=== PATIENT | female | born 1970 ===

== ENCOUNTER 2023-03-01 15:30 | Outpatient (RCR) | payer OTHER, SELFPAY ==
[2023-02-04 08:45] VITALS: BP_SYST 110
--- NOTE | 2023-02-04 09:54 | OPREHPOC ---
Outpatient Therapy Plan of Care This is a Multidisciplinary Plan of Care that may contain components documented by all disciplines (PT, OT, and ST.) PT Problem 1 PT Problem #1 Knowledge Deficit PT Goal 1 Goal 1* pt indep with HEP 2* pt demonstrate correct position of R shoulder with exercises and activities PT Problem 2 PT Problem #2 Pain PT Goal 1 Goal 1* pt report pain R shoulder at worst of 5/10 2* no pain with cervical rotation to the L PT Problem 3 PT Problem #3 Impaired Strength PT Goal 1 Goal active strength of R shoulder: in standing 5 reps: 1* flexion to 145' 2* abduction to 125' 3* IR- palm to above waist 4* pt stand with correct R shoulder position/ no forward rotation
--- NOTE | 2023-02-04 09:55 | PTOPEVAL1 ---
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#; Reported Pain Level Pain Score Self Report Additional Pain Score Comments pain range in the past week: 0-9/10; at rest: discomfort in shoulder; pain is less than initially was; over posterior shoulder, under arm pit and med/ anterior humerus; increase pain: lift up or reach out to side, lie on R side decrease pain: rest, ibuprofen, arm held at her side is not using heat or ice--instructed on PRN use with sleeping, generally on R side, sometimes have to roll over during night, but does not really wake her up neck pain and pressure, tightness over neck and shoulder muscles all the time also reports pain over top of R breast; headaches all the time, under alot of stress and tight muscles Assessment PT Clinical Summary Vicenta has the diagnosis of R shoulder pain, onset few months ago, without an injury or trauma to shoulder. She is R handed and works delivering packages. Her history includes neck pain, headaches and low back pain. With the evaluation, she has decreased R shoulder ROM and strength, with abduction and IR the most painful motions; tenderness and spasms over R pec biceps, and R& L cervical and upper traps; poor positioning of neck and shoulder, with rounded position. Skilled PT services are indicated for modalities to decrease pain and spasms over cervical-R shoulder complex, with t
--- NOTE | 2023-02-15 10:09 | PCPTNOTE ---
Pt cancelled this morning due to work.
[2023-03-01 15:30] VITALS: BP_SYST 110
--- NOTE | 2023-03-01 16:09 | PTOPPROG ---
Assessment and note entered by Lisa Gann, PT Evaluation Information Assessment Status Progress Diagnosis R shoulder pain Onset November 2022 Subjective Information shoulder still hurts when reaching up or to the side and backwards; tend to use my L arm more to protect the R arm; have a foam roller at home now and use to stretch and do exercises; Assessment PT Clinical Summary Vicenta has received 8 PT sessions. Compared to the initial evaluation: pain rating is the same at 0-9/10; can now lie on R side a short time; increased active ROM of shoulder flexion and abduction, and decreased IR ROM; most pain with shoulder IR; continues to have pain with shoulder abduction and ER combined motion; continues to have pain with cervical rotation to L. Education has been performed for HEP and posture correction of neck/shoulder. The goals were partially met. She has a follow up appointment with care provider next week. Recommend further imaging/ testing of her R shoulder. If further PT is indicated, she will obtain a new order. Plan of Care Interventions Electrical Stimulation,Hot Pack/Cold Pack,Manual Therapy,Neuro Re-education,Patient Education,Therapeutic Activities,Therapeutic Exercise,Ultrasound,Other Other Interventions IASTM, taping PT Services Indicated Yes Treatment Frequency and to follow up with her care provider; if PT is to Duration continue, will need new script These treatments will address the objective and functional deficits as defined above. The patient will be advanced safely and appropriately in order for the patient to progress towards his/her prior level of function. Additional exercises will be introduced and as well as a comprehensive home exercise program upon discharge, if needed, ?to ensure carryover of functional gains achieved in the clinic. This treatment plan has been reviewed and agreement upon by the patient.
--- NOTE | 2023-03-25 09:47 | PTOPDC ---
Assessment and note entered by Lisa Gann, PT Evaluation Information Assessment Status Discharge - Pt Not Present Diagnosis R shoulder pain Onset November 2022 Assessment PT Clinical Summary PHYSICAL THERAPY DISCHARGE Ms. Perea has not returned for additional therapy since the progress report dated 03-01-23. Therefore, she will be discharged at this time. The goals were not addressed. Plan of Care PT Services Indicated No
== END 2023-03-25 10:17 | disposition home or self-care (01) ==
LOC: ANHPT 15:30
PROVIDERS: PCP Physician Assistant; Visit Provider Physician Assistant
DX: M25.511 Pain in right shoulder (principal)
CPT/HCPCS: 97014; 97110; 97140; 97162; 97530; G0283